=== PATIENT | female | born 1940 | race Caucasian/White ===

== ENCOUNTER → 2018-01-20 | Emergency (ER) | payer OTHER ==
[~2018-01-20] VITALS: Ht 165.1 cm; Wt 64.4 kg
[~2018-01-20] MED LIST: ASPIRIN81 M2 PO; ATENOLOL 25 MG25 M1 PO; ATORVASTATIN CA40 MG; AURALGAN OTIC S14 ML OT; BENTYL 20 MG TA20 M1 PO; BUSPIRONE HCL10 MG; CEFDINIR300 MG; CITRACAL; CITRACAL + D M1 EACH; FLEXERIL PO; HYDROCODON-ACE1 EAC7 PO; HYDROCODON-ACE1 EACH PO; LEVAQUIN 500 M500 MG PO; MAG; MECLIZINE HCL12.5 MG PO; MULTI VITAMIN1 EACH PO; NORCO 5-325 TA1 EACH PO; PROAIR HFA8.5 GM; SIMVASTATIN40 MG PO; TESSALON200 MG; VALIUM2 MG PO; ZOFRAN ODT4 MG PO; [UNRECOGNIZED DRUG - OTHER]; [UNRECOGNIZED DRUG - OTHER]
[2018-01-20 08:44] VITALS: BP 173/72
== END ==
LOC: M.ERS 08:17
DX: S29.011A Strain of muscle and tendon of front wall of thorax, initial encounter (principal); E78.5 Hyperlipidemia, unspecified; X50.0XXA Overexertion from strenuous movement or load, initial encounter; Y93.89 Activity, other specified; Y92.89 Other specified places as the place of occurrence of the external cause; Y99.8 Other external cause status

== ENCOUNTER 2018-03-07 11:46 | Emergency (ER) | payer OTHER ==
[~2018-03-07] VITALS: Ht 165.1 cm; Wt 62.6 kg
[~2018-03-07 11:46] MED LIST changes: -BENTYL 20 MG TA20 M1 PO
--- NOTE | 2018-03-07 12:10 | EKG ---
[place] [address] ELECTROCARDIOGRAM REPORT Name: GREYSON TORRE Room: [facility]#: [id number] Admission: 03/07/18 Attend Phys: Discharge: Date of : 42 Report #: [id number] THIS REPORT FOR: //name// [facility] ED Test Date: 2018-03-07 Test Time: 11:55:47 Pat Name: GREYSON TORRE Department: Room: Gender: Tag Writer: Sharmila CHAN : 1940 Requested By: Berry Waters Order Number: [id number] MD: Azael Meng Measurements Intervals [place] Rate: 56 P: 51 AK: 142 QRS: 35 QRSD: 98 T: 14 QT: 382 QTc: 369 Interpretive Statements Sinus bradycardia Probable left atrial enlargement Borderline T wave abnormalities Compared to ECG 08/24/2016 10:14:17 no change Electronically Signed On 03-07-2018 12:10:27 CDT by Azael Meng [email or web address] <ELECTRONICALLY SIGNED> By: Azael Meng MD, [facility] 03/07/18 1210 D: 08/5 1155 Azael Meng MD, FACC /EPI
[2018-03-07 12:24] LABS: ABSOLUTE BASOPHILS 0.1 thou/uL (0.0-0.2); ABSOLUTE EOSINOPHILS 0.2 thou/uL (0.0-0.7); ABSOLUTE LYMPHOCYTES 1.7 thou/uL (0.8-5.3); ABSOLUTE MONOCYTES 0.5 thou/uL (0.0-1.2); ABSOLUTE NEUTROPHILS 1.8 thou/uL (1.6-8.1); BASOPHILS 2.4 %; EOSINOPHILS 5.1 %; HEMATOCRIT 37.9 % (37.0-47.0); HEMOGLOBIN 12.5 gm/dL (12.0-15.0); LYMPHOCYTES 39.5 %; MCH 32.1 pg (26.0-34.0); MCHC 33.1 g/dL (28.0-37.0); MCV 97.1 fL (80.0-100.0); MONOCYTES 11.9 %; MPV 9.5 fl. (7.2-11.1); NUCLEATED RBCS 0 /100WBC; PLATELET COUNT* 225 thou/uL (150-400); POLYS 41.1 %; RDW-CV 13.3 % (10.5-14.5); WBC 4.4 thou/uL (4.0-11.0)
[2018-03-07 12:29] LABS: CREATININE 0.8 mg/dL (0.6-1.3); POTASSIUM 3.6 mmol/L (3.5-5.1)
[2018-03-07 12:35] LABS: ALBUMIN 3.2 g/dL (3.4-5.0); TOTAL BILIRUBIN 0.4 mg/dL (<0.1-1.0); TOTAL PROTEIN 6.8 g/dL (6.4-8.2)
[2018-03-07] MEDS ORDERED: BENTYL 20 MG TA20 M1 PO (13:43)
[2018-03-07] MEDS ORDERED: ZOFRAN ODT4 MG PO (13:43)
[2018-03-07 13:59] VITALS: BP 155/75
== END 2018-03-07 13:59 | disposition home or self-care (01) ==
LOC: M.ERS 11:46
PROVIDERS: Nurse Practitioner Family
DX: K80.50 Calculus of bile duct without cholangitis or cholecystitis without obstruction (principal); R19.7 Diarrhea, unspecified; E78.5 Hyperlipidemia, unspecified; Z95.5 Presence of coronary angioplasty implant and graft

== ENCOUNTER 2019-01-10 12:38 | Inpatient (IN) | payer OTHER ==
[~2019-01-10] VITALS: Ht 152.4 cm; Wt 54.4 kg
--- NOTE | ~2019-01-10 | CON ---
[address] [address] CONSULTATION Name: GREYSON TORRE Room: [address] IN ..#: [id number] Admission: 01/10/19 Attend Phys: Alex Herzog MD Discharge: Date of : 42 Report #: [id number] THIS REPORT FOR: //name// CC: Alex Segundo DO DICTATED BY: Tiff MONTAÑOP DATE OF SERVICE: 01/11/2019 Please note at the time of this dictation, the patient was seen and physically examined by myself. REASON FOR CONSULTATION: Pancreatitis, abdominal pain. HISTORY OF PRESENT ILLNESS: This is a 78-year-old female who presented to the Emergency Room yesterday morning after being awakened from her sleep with some abdominal discomfort that progressively got worse. She states she took some Tylenol early in that morning and then she started having profuse nausea and vomiting. She has never had this before. She denies any fever or chills, any chest pain or shortness of breath with any of this. Her bowels do move once or twice a day. She states she had a colonoscopy many years ago, but where she tells me she had it done [address] does not correspond to any endoscopy studies or Endoscopy Center is at that area. ALLERGIES: No known drug allergies. MEDICATIONS: From home Tenormin, aspirin, Lipitor, Citrucel, Bentyl, and Zofran. PAST MEDICAL HISTORY: History of coronary artery disease. She had status post cardiac stenting, hypertension, hyperlipidemia, and osteoporosis. PAST SURGICAL HISTORY: She has had a cardiac catheterization, left knee surgery and cataract surgery. FAMILY HISTORY: Negative for any GI or female cancers. 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 Denies any alcohol, tobacco or illegal drug use. REVIEW OF SYSTEMS: Twelve-point review of systems is essentially negative except what is mentioned in the HPI. PHYSICAL EXAMINATION: [place] [address] CONSULTATION Name: GREYSON TORRE Room: [address] IN [facility]#: [id number] Admission: 01/10/19 Attend Phys: Alex Herzog MD Discharge: Date of : 42 Report #: [id number] VITAL SIGNS: Temperature 36.8, pulse 66, respirations 18, blood pressure 122/78. HEART: Regular rate and rhythm. LUNGS: Clear. ABDOMEN: Soft, positive bowel sounds in all 4 quadrants with tenderness noted in the upper quadrants. LABORATORY DATA: Hemoglobin 12.5, white count is 7.8, platelets 204. GFR is 122 on admission, total bilirubin was 1.2, it is down to 0.6, alkaline phosphatase was 112, it is 84. ALT was 136 and down to 84. AST was 205 and down to 82. Lipase on admission was greater than 30,000 and it is down to 6699. CT showed gallstones and pancreatic head edema. Ultrasound showed a common bile duct began at 6.6 mm. MRCP is pending. IMPRESSION: 1. Abdominal pain. 2. Nausea and vomiting. 3. Pancreatitis, likely secondary to passing of a gallstone. PLAN: 1. MRCP results pending. 2. Fluids at 250 mL an hour. 3. Further recommendations to be made once the MRCP has been noted. Thank you for allowing us to participate in this patient's care. Please do not hesitate to call with any questions in regard to this consult. By: 1050 Dayan Feldman DO /airam
[~2019-01-10 12:38] MED LIST changes: -ATORVASTATIN CA40 MG; +BENTYL 20 MG TA20 M1 PO; -CITRACAL + D M1 EACH; +CITRACAL + D M1 EACH PO; +LIPITOR40 MG PO
[2019-01-10 13:06] VITALS: BP 171/81
[2019-01-10 13:33] LABS: ABSOLUTE BASOPHILS 0.1 thou/uL (0.0-0.2); ABSOLUTE LYMPHOCYTES 1.6 thou/uL (0.8-5.3); ABSOLUTE MONOCYTES 0.5 thou/uL (0.0-1.2); BASOPHILS 0.7 %; EOSINOPHILS 0.2 %; HEMATOCRIT 42.9 % (37.0-47.0); HEMOGLOBIN 14.4 gm/dL (12.0-15.0); LYMPHOCYTES 15.9 %; MCHC 33.5 g/dL (28.0-37.0); MCV 95.5 fL (80.0-100.0); MONOCYTES 5.3 %; MPV 9.7 fl. (7.2-11.1); NUCLEATED RBCS 0 /100WBC; PLATELET COUNT* 248 thou/uL (150-400); POLYS 77.9 %; RBC 4.49 mil/uL (4.20-5.00); RDW-CV 13.4 % (10.5-14.5); WBC 10.3 thou/uL (4.0-11.0)
[2019-01-10 13:44] LABS: ANION GAP 12 mmol/L (7-16); BUN 16 mg/dL (7-18); CALCIUM 9.6 mg/dL (8.5-10.1); CHLORIDE 101 mmol/L (98-107); CO2 27 mmol/L (21-32); CREATININE 0.7 mg/dL (0.6-1.3); GLUCOSE 163 mg/dL (70-99); SODIUM 140 mmol/L (136-145)
[2019-01-10 13:58] LABS: ALBUMIN 3.9 g/dL (3.4-5.0); ALKALINE PHOSPHATASE 110 U/L (46-116); MAGNESIUM 1.9 mg/dL (1.8-2.4); SGOT 205 U/L (15-37); SGPT 136 U/L (30-65); TOTAL BILIRUBIN 1.2 mg/dL (<0.1-1.0); TOTAL PROTEIN 7.9 g/dL (6.4-8.2); TROPONIN-I LEVEL <0.06 ng/mL (<0.06)
[2019-01-10 14:17] LABS: LIPASE > 30000 U/L (73-393)
--- NOTE | 2019-01-10 14:34 | EKG ---
[place] [address] ELECTROCARDIOGRAM REPORT Name: GREYSON TORRE Room: [facility]#: [id number] Admission: 01/10/19 Attend Phys: Discharge: Date of : 42 Report #: [id number] THIS REPORT FOR: //name// [facility] ED Test Date: 2019-01-10 Test Time: 13:10:57 Pat Name: GREYSON TORRE Department: Room: Gender: F Software Support Analyst: : 1940 Requested By: Peter White Order Number: [id number] MD: Azael Meng Measurements Intervals [place] Rate: 57 P: 32 RI: 136 QRS: 43 QRSD: 106 T: 61 QT: 410 QTc: 400 Interpretive Statements Sinus rhythm Probable left atrial enlargement Compared to ECG 03/07/2018 11:55:47 no change Electronically Signed On 01-10-2019 14:34:05 CDT by Azael Meng [email or web address] <ELECTRONICALLY SIGNED> By: Azael Meng MD, [facility] 01/10/19 1434 1310 1310 Azael Meng MD, FACC /EPI
[2019-01-10 15:47] LABS: URINE BILIRUBIN NEGATIVE (Negative); URINE BLOOD TRACE (Negative); URINE CLARITY CLEAR; URINE COLOR YELLOW; URINE GLUCOSE-RANDOM NEGATIVE (Negative); URINE KETONES 2+ (Negative); URINE LEUKOCYTES-REFLEX NEGATIVE (Negative); URINE NITRITE-REFLEX NEGATIVE (Negative); URINE PROTEIN NEGATIVE (Negative); URINE UROBILINOGEN 0.2 E.U./dl (0.2-1.0)
[2019-01-10 17:55] VITALS: BP 131/60
[2019-01-10 19:02] VITALS: BP 160/75
--- NOTE | 2019-01-10 19:51 | NUR ---
PATIENT ARRIVED TO UNIT AT APPROX 1800. ALERT AND ORIENTED X4. ADMISSION HISTORY AND ASSESSMENT COMPLETED AND CHARTED. VSS ON ROOM AIR. PATIENT HAD NO COMPLAINTS OF PAIN UPON ASSESSMENT. 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 PATIENT IS STAND BY ASSIST TO THE BATHROOM. INSTRUCTED TO USE CALL LIGHT FOR NEEDS. WILL CONTINUR TO MONITOR.
[2019-01-10 20:00] VITALS: BP 142/79
[2019-01-11 03:54] LABS: ABSOLUTE EOSINOPHILS 0.1 thou/uL (0.0-0.7); ABSOLUTE LYMPHOCYTES 1.6 thou/uL (0.8-5.3); ABSOLUTE MONOCYTES 0.7 thou/uL (0.0-1.2); ABSOLUTE NEUTROPHILS 5.5 thou/uL (1.6-8.1); BASOPHILS 0.5 %; EOSINOPHILS 0.8 %; HEMATOCRIT 38.2 % (37.0-47.0); HEMOGLOBIN 12.5 gm/dL (12.0-15.0); LYMPHOCYTES 19.7 %; MCH 31.7 pg (26.0-34.0); MCHC 32.8 g/dL (28.0-37.0); MCV 96.7 fL (80.0-100.0); MONOCYTES 9.3 %; MPV 9.7 fl. (7.2-11.1); NUCLEATED RBCS 0 /100WBC; PLATELET COUNT* 204 thou/uL (150-400); POLYS 69.7 %; RBC 3.95 mil/uL (4.20-5.00); RDW-CV 13.8 % (10.5-14.5); WBC 7.9 thou/uL (4.0-11.0)
[2019-01-11 04:26] LABS: CALCIUM 7.4 mg/dL (8.5-10.1); CREATININE 0.5 mg/dL (0.6-1.3); MAGNESIUM 1.8 mg/dL (1.8-2.4); PHOSPHORUS* 2.4 mg/dL (2.5-4.9); POTASSIUM 3.6 mmol/L (3.5-5.1); TOTAL BILIRUBIN 0.6 mg/dL (<0.1-1.0); TOTAL PROTEIN 5.9 g/dL (6.4-8.2)
--- NOTE | 2019-01-11 06:21 | NUR ---
ASSESSMENT: PT REMAIN ALERT AND ORIENT TIMES FOUR, UP TO BR WITH SBA. IV IN LEFT AC INFILTERATE, ARM ELEVATED ON PILLOW AND A WARM BLANKET APPLIED. SWELLING IS SLOWLY GOING DOWN. VSS, AFEBRILE. NPO DURING THE NIGHT.. MRI SCHEDULED FOR THIS AM. SLOW PROGRESS, WILL CONTINUE TO MONITOR.
[2019-01-11 07:40] VITALS: BP 120/78
--- NOTE | 2019-01-11 15:13 | NUR ---
PT.RESTING IN BED. SHE WAS ALERT AND ORIENTED. 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 SHE IS VERY INDEPENDENT. NO USE OF DME,HH OR SNF. HER DAUGHTER,INEZ, IS SUPPORTIVE. IS HER PCP. SHE HAS A DPOA FORM ON HER TABLE AT HOME. SHE SAID SHE WILL FILL IT OUT WHEN SHE GETS HOME. SHE DOES NOT FEEL SHE WILL HAVE ANY DISCHARGE NEEDS.
--- NOTE | 2019-01-11 16:47 | NUR ---
PT REMAINED ALERT AND ORIENTED. PT RESTING IN ROOM. PT DENIED ANY NEEDS AT THIS TIME. FALL RISK PRECAUTIONS IN PLACE. PAIN MEDS GIVEN ORDERED. HOURLY ROUNDING COMPLETED. WILL CONTINUE TO MONITOR. WILL CONTINUE TO MONITOR.
[2019-01-11 16:52] VITALS: BP 140/70
[2019-01-11 20:00] VITALS: BP 142/72
[2019-01-12 04:33] LABS: HEMATOCRIT 35.3 % (37.0-47.0); MCH 32.7 pg (26.0-34.0); MCHC 33.9 g/dL (28.0-37.0); MCV 96.4 fL (80.0-100.0); RBC 3.66 mil/uL (4.20-5.00); RDW-CV 13.5 % (10.5-14.5); WBC 7.2 thou/uL (4.0-11.0)
[2019-01-12 04:36] LABS: ALBUMIN 2.8 g/dL (3.4-5.0); CALCIUM 6.8 mg/dL (8.5-10.1); CREATININE 0.4 mg/dL (0.6-1.3); POTASSIUM 3.2 mmol/L (3.5-5.1); TOTAL BILIRUBIN 0.8 mg/dL (<0.1-1.0); TOTAL PROTEIN 6.1 g/dL (6.4-8.2)
[2019-01-12 07:35] VITALS: BP 122/60
[2019-01-12 08:29] LABS: CALCIUM 6.9 mg/dL (8.5-10.1); CREATININE 0.4 mg/dL (0.6-1.3); MAGNESIUM 1.8 mg/dL (1.8-2.4); POTASSIUM 3.2 mmol/L (3.5-5.1)
[2019-01-12 16:28] VITALS: BP 132/60
--- NOTE | 2019-01-12 16:58 | NUR ---
PT RESTING IN ROOM. PT C/O NAUSEA, MEDS GIVEN ORDERED. FALL RISK PRECAUTIONS IN PLACE. POTASSIUM REPLACED PER PROTOCOL. HOURLY ROUNDING COMPLETED. PT TOLERATING CLEAR LIQUID DIET. WILL CONTINUE TO MONITOR.
[2019-01-12 20:24] VITALS: BP 145/70
[2019-01-13 04:22] LABS: ABSOLUTE EOSINOPHILS 0.1 thou/uL (0.0-0.7); ABSOLUTE LYMPHOCYTES 1.9 thou/uL (0.8-5.3); ABSOLUTE MONOCYTES 0.8 thou/uL (0.0-1.2); BASOPHILS 0.6 %; EOSINOPHILS 1.8 %; HEMATOCRIT 35.5 % (37.0-47.0); HEMOGLOBIN 11.9 gm/dL (12.0-15.0); LYMPHOCYTES 24.3 %; MCH 32.2 pg (26.0-34.0); MCHC 33.5 g/dL (28.0-37.0); MCV 96.1 fL (80.0-100.0); MONOCYTES 10.1 %; MPV 10.3 fl. (7.2-11.1); NUCLEATED RBCS 0 /100WBC; PLATELET COUNT* 206 thou/uL (150-400); POLYS 63.2 %; RBC 3.69 mil/uL (4.20-5.00); RDW-CV 13.1 % (10.5-14.5); WBC 7.8 thou/uL (4.0-11.0)
--- NOTE | 2019-01-13 04:32 | NUR ---
PATIENT SLEPT WELL DURING THIS SHIFT. PT USES CALL LIGHT APPROPRIATLEY FOR ASSISTANCE TO BATHROOM. PT AMBULATES WELL HOLDING ON TO IV POLE. PT VOIDS YELLOW URINE. PT WITH NO BOWEL MOVEMENT DURING THIS SHIFT. PT C/O BACK PAIN BUT REFUSING PAIN MEDICATION. NO NAUSEA/VOMITING NOTED ON THIS SHIFT. FREQUENTLY USED ITEMS AND CALL LIGHT WITHIN REACH. SIDERAILS UPX2. WILL CONTINUE TO MONITOR.
[2019-01-13 04:34] LABS: PREALBUMIN 12.7 mg/dL (18.0-35.7)
[2019-01-13 04:52] LABS: ALBUMIN 2.7 g/dL (3.4-5.0); CREATININE 0.5 mg/dL (0.6-1.3); MAGNESIUM 1.7 mg/dL (1.8-2.4); TOTAL BILIRUBIN 0.8 mg/dL (<0.1-1.0); TOTAL PROTEIN 6.1 g/dL (6.4-8.2)
[2019-01-13 04:59] LABS: POTASSIUM 4.2 mmol/L (3.5-5.1)
[2019-01-13 07:20] VITALS: BP 145/74
[2019-01-13 07:39] LABS: HEPATITIS B SURFACE AG Negative (Negative)
[2019-01-13 15:34] VITALS: BP 116/62
--- NOTE | 2019-01-13 17:14 | NUR ---
pt remained alert and oriented. mg replaced as ordered. zofran given as needed. fall risk precautions in place. hourly rounding completed. will continue to monitor.
[2019-01-14 04:09] LABS: ABSOLUTE BASOPHILS 0.1 thou/uL (0.0-0.2); ABSOLUTE EOSINOPHILS 0.2 thou/uL (0.0-0.7); ABSOLUTE LYMPHOCYTES 1.8 thou/uL (0.8-5.3); ABSOLUTE MONOCYTES 0.9 thou/uL (0.0-1.2); ABSOLUTE NEUTROPHILS 5.2 thou/uL (1.6-8.1); BASOPHILS 0.7 %; EOSINOPHILS 2.2 %; HEMATOCRIT 36.1 % (37.0-47.0); HEMOGLOBIN 12.1 gm/dL (12.0-15.0); LYMPHOCYTES 21.7 %; MCH 32.3 pg (26.0-34.0); MCHC 33.5 g/dL (28.0-37.0); MCV 96.5 fL (80.0-100.0); MONOCYTES 10.5 %; MPV 10.3 fl. (7.2-11.1); NUCLEATED RBCS 0 /100WBC; PLATELET COUNT* 212 thou/uL (150-400); POLYS 64.9 %; RBC 3.75 mil/uL (4.20-5.00); RDW-CV 13.6 % (10.5-14.5); WBC 8.1 thou/uL (4.0-11.0)
[2019-01-14 04:30] LABS: ALBUMIN 2.7 g/dL (3.4-5.0); CALCIUM 7.1 mg/dL (8.5-10.1); CREATININE 0.5 mg/dL (0.6-1.3); POTASSIUM 4.3 mmol/L (3.5-5.1); TOTAL BILIRUBIN 0.7 mg/dL (<0.1-1.0); TOTAL PROTEIN 6.2 g/dL (6.4-8.2)
--- NOTE | 2019-01-14 04:51 | NUR ---
PATIENT SLEPT WELL DURING THIS SHIFT. PT UP TO BATHROOM WITH SLOW STEADY GAIT. PT DENIES PAIN/NAUSEA ON THIS SHIFT. PT WITH LOOSE STOOLS. PT DENIES NEEDS AT THIS TIME. FREQUENTLY USED ITEMS AND CALL LIGHT WITHIN REACH. SIDERAILS UPX2. WILL CONTINUE TO MONITOR.
[2019-01-14 07:40] VITALS: BP 121/60
[2019-01-14 09:34] VITALS: BP 121/60
--- NOTE | 2019-01-14 12:58 | NUR ---
PATIENT DISCHARGED TO HOME AT THIS TIME WITH NIECE. NO COMPLAINTS OF PAIN THIS AM. TOLERATED SOFT FIBER DIET. PATIENT EDUCATED ON DIET AT HOME, VERBALIZES UNDERSTANDING. PATIENT AMBULATING AROUND ROOM WITHOUT DIFFICULTY. VERBALIZES UNDERSTANDING OF PAPERWORK, NO SCRIPTS NOTED. PATIENT TAKEN OUT VIA WHEELCHAIR WITH ALL BELONGINGS.
== END 2019-01-14 13:01 | disposition home or self-care (01) | DRG 439 ==
LOC: M.ERS 12:38 → M.ORTHSURG 15:36 → M.TBA-ER 15:36 → M.ORTHSURG 17:55
PROVIDERS: Internal Medicine Gastroenterology; Nurse Practitioner Psychiatric/Mental Health; Surgery; ADMIT Internal Medicine
DX: K85.10 Biliary acute pancreatitis without necrosis or infection (principal); R65.10 Systemic inflammatory response syndrome (SIRS) of non-infectious origin without acute organ dysfunction; K92.0 Hematemesis; R74.0 Nonspecific elevation of levels of transaminase and lactic acid dehydrogenase [LDH]; E80.6 Other disorders of bilirubin metabolism; M81.0 Age-related osteoporosis without current pathological fracture; K59.00 Constipation, unspecified; I25.10 Atherosclerotic heart disease of native coronary artery without angina pectoris; E86.0 Dehydration; E78.5 Hyperlipidemia, unspecified; H91.90 Unspecified hearing loss, unspecified ear; Z95.5 Presence of coronary angioplasty implant and graft; Z79.82 Long term (current) use of aspirin; Z79.899 Other long term (current) drug therapy; Z98.49 Cataract extraction status, unspecified eye